=== PATIENT | female | born 1985 | race Hispanic/Latino ===

== ENCOUNTER 2019-04-06 15:18 | Emergency (ER) | payer BC ==
[~2019-04-06] VITALS: Ht 149.9 cm; Wt 106.6 kg
[2019-04-06] MEDS ORDERED: LOSARTAN POTASSIUM 25 MG TAB PO SCH (16:00)
--- NOTE | 2019-04-06 16:16 | Diagnostic Imaging Report ---
EXAMINATION: CHEST 2 VIEWS INDICATION: Chest pain COMPARISON: None FINDINGS: LINES/TUBES:None LUNGS:The lung volumes are low. PLEURA:No pleural effusion or pneumothorax. MEDIASTINUM:The heart appears mildly enlarged, possibly in part due to low lung volumes. BONES/SOFT TISSUES:No acute osseous injury. ABDOMEN:No free air under the diaphragm. IMPRESSION: Low lung volumes. No focal pneumonia or pulmonary edema Signed by: Tamy De La Garza MD on 04/06/2019 4:13 PM
[2019-04-06 16:53] LABS: BILIRUBIN,URINE NEGATIVE (NEGATIVE); CLARITY,URINE SL CLOUDY (CLEAR); COLOR,URINE YELLOW (YELLOW); KETONES,URINE NEGATIVE (NEGATIVE); LEUKOCYTE ESTERASE ,URINE TRACE (NEGATIVE); NITRITE,URINE NEGATIVE (NEGATIVE); PROTEIN,URINE DIPSTICK NEGATIVE (NEGATIVE); URINE UROBILINOGEN 0.2 mg/dL (0.2 - 1)
[2019-04-06 16:58] LABS: PREGNANCY TEST, URINE NEGATIVE (NEGATIVE)
[2019-04-06 17:04] LABS: BACTERIA,URINE MODERATE /HPF; EPITHELIAL CELLS,URINE MODERATE /LPF; WBC,URINE (MAN) 0-5 /HPF (0-5)
== END 2019-04-06 17:31 | disposition home or self-care (01) ==
LOC: ER 15:18
DX: R07.89 Other chest pain (principal); I10 Essential (primary) hypertension
CPT/HCPCS: 36415; 71046; 81001; 81025; 84484; 85379; 93005; 99284